=== PATIENT | female | born 1945 | race Asian ===

== ENCOUNTER 2018-03-18 12:28 | Emergency (ER) | payer MEDICAID, MEDICARE ==
[~2018-03-18] VITALS: Ht 160 cm; Wt 80.0 kg
[2018-03-18 13:26] LABS: BASOPHILS % 0.9 % (0.0-2.0); EOSINOPHILS % 0.5 % (0.0-5.0); HEMATOCRIT. 41.6 % (36.0-48.0); HEMOGLOBIN. 14.1 g/dL (12.0-16.0); LYMPHOCYTES % 14.1 % (20.0-50.0); MEAN CORPUSCULAR HEMOGLOBIN 32.2 pg (28.0-32.0); MEAN CORPUSCULAR VOLUME 95.4 fL (81.0-99.0); MEAN PLATELET VOLUME 7.8 fl (7.4-10.4); NEUTROPHILS % 77.5 % (40.0-76.0); PLATELET 277 x1000/uL (130-400); RED BLOOD CELL COUNT 4.36 mill/uL (4.2-5.4); RED CELL DISTRIBUTION WIDTH 13.1 % (11.6-14.6)
[2018-03-18] MEDS ORDERED: VISCOUS LIDOCAINE 2% 15 ML UDC PO STA (13:30)
[2018-03-18] MEDS ORDERED: MAGNESIUM/ALUMINUM HYDROXIDE/SIMETHICONE 30ML UDC PO STA (13:30)
[2018-03-18] MEDS ORDERED: SODIUM CHLORIDE 0.9% 1,000 ML IV ONE (13:30)
[2018-03-18 13:31] LABS: CHLORIDE 100 mEq/L (98-107)
[2018-03-18 13:37] LABS: INR 0.9; PROTHROMBIN TIME 9.2 sec (9.1-11.1)
[2018-03-18 13:44] LABS: CLARITY URINE CLEAR (CLEAR); COLOR URINE YELLOW (YELLOW); KETONES URINE NEGATIVE (NEGATIVE); LEUKOCYTE ESTERASE URINE TRACE (NEGATIVE); NITRITE URINE NEGATIVE (NEGATIVE); OCCULT BLOOD URINE NEGATIVE (NEGATIVE); PH URINE 7.5 (4.5-8.0); PROTEIN URINE NEGATIVE (NEGATIVE); SPECIFIC GRAVITY URINE 1.006 (1.005-1.030); UROBILINOGEN URINE 0.2 E.U./dL (0.2-1.0)
[2018-03-18] MEDS ORDERED: POTASSIUM CHLORIDE 20MEQ TABLET SR PO ONE (14:15)
[2018-03-18 15:55] VITALS: BP 122/78
== END 2018-03-18 16:16 | disposition home or self-care (01) ==
LOC: ER 12:28
DX: K29.70 Gastritis, unspecified, without bleeding (principal); E86.0 Dehydration; E87.6 Hypokalemia; I10 Essential (primary) hypertension; Z88.0 Allergy status to penicillin
CPT/HCPCS: 36415; 76705; 80053; 81003; 83690; 85025; 85610; 96360; 96361; 99284; J7030

== ENCOUNTER 2018-04-05 12:21 | Emergency (ER) | payer MEDICAID, MEDICARE ==
[~2018-04-05] VITALS: Ht 152.4 cm; Wt 60.0 kg
[2018-04-05] MEDS ORDERED: ACETAMINOPHEN 325MG TABLET PO ONE (14:30)
[2018-04-05 15:17] LABS: BASOPHILS % 1.5 % (0.0-2.0); EOSINOPHILS % 0.7 % (0.0-5.0); HEMATOCRIT. 38.4 % (36.0-48.0); LYMPHOCYTES % 22.8 % (20.0-50.0); MEAN CORPUSCULAR HEMOGLOBIN 32.2 pg (28.0-32.0); MEAN CORPUSCULAR VOLUME 95.3 fL (81.0-99.0); MEAN PLATELET VOLUME 7.6 fl (7.4-10.4); PLATELET 349 x1000/uL (130-400); RED BLOOD CELL COUNT 4.03 mill/uL (4.2-5.4); RED CELL DISTRIBUTION WIDTH 13.2 % (11.6-14.6)
[2018-04-05 15:25] LABS: INR 0.9; PARTIAL THROMBOPLASTIN TIME 23.8 sec (23.4-31.0); PROTHROMBIN TIME 9.4 sec (9.1-11.1)
[2018-04-05 15:30] LABS: CHLORIDE 105 mEq/L (98-107)
[2018-04-05] MEDS ORDERED: POTASSIUM CHLORIDE 20MEQ TABLET SR PO ONE (15:45)
[2018-04-05 17:06] LABS: CLARITY URINE CLEAR (CLEAR); COLOR URINE YELLOW (YELLOW); KETONES URINE NEGATIVE (NEGATIVE); LEUKOCYTE ESTERASE URINE NEGATIVE (NEGATIVE); NITRITE URINE NEGATIVE (NEGATIVE); OCCULT BLOOD URINE NEGATIVE (NEGATIVE); PH URINE 7.5 (4.5-8.0); PROTEIN URINE NEGATIVE (NEGATIVE); SPECIFIC GRAVITY URINE 1.004 (1.005-1.030); UROBILINOGEN URINE 0.2 E.U./dL (0.2-1.0)
[2018-04-05 18:00] VITALS: BP 121/68
== END 2018-04-05 18:06 | disposition home or self-care (01) ==
LOC: ER 12:21
DX: M71.21 Synovial cyst of popliteal space [Baker], right knee (principal); M17.11 Unilateral primary osteoarthritis, right knee
CPT/HCPCS: 36415; 73560; 93970; 99284

== ENCOUNTER 2018-05-17 15:19 | Inpatient (IN) | payer MEDICARE ==
[~2018-05-17] VITALS: Ht 160 cm; Wt 61.7 kg
[2018-05-17] MEDS ORDERED: ONDANSETRON HCL 4MG/2ML INJ IV STA (18:33)
[2018-05-17] MEDS ORDERED: SODIUM CHLORIDE 0.9% 1,000 ML IV ONE (18:33)
[2018-05-17] MEDS ORDERED: MORPHINE SULFATE 4 MG/ML CPJ (NOT FOR IM USE) IV STA (18:33)
[2018-05-17] MEDS ORDERED: PANTOPRAZOLE SODIUM 40 MG/VIAL IV STA (18:33)
[2018-05-17 19:01] LABS: BASOPHILS % 0.8 % (0.0-2.0); EOSINOPHILS % 0.6 % (0.0-5.0); HEMATOCRIT. 26.8 % (36.0-48.0); LYMPHOCYTES % 18.8 % (20.0-50.0); MEAN CORPUSCULAR HEMOGLOBIN 32.6 pg (28.0-32.0); MEAN CORPUSCULAR VOLUME 96.9 fL (81.0-99.0); MEAN PLATELET VOLUME 7.9 fl (7.4-10.4); MONOCYTES % 7.4 % (2.0-8.0); NEUTROPHILS % 72.4 % (40.0-76.0); PLATELET 316 x1000/uL (130-400); RED BLOOD CELL COUNT 2.76 mill/uL (4.2-5.4); RED CELL DISTRIBUTION WIDTH 13.8 % (11.6-14.6)
[2018-05-17 19:06] LABS: CHLORIDE 105 mEq/L (98-107)
[2018-05-17 19:21] LABS: PARTIAL THROMBOPLASTIN TIME 20.3 sec (23.4-31.0); PROTHROMBIN TIME 9.8 sec (9.1-11.1)
[2018-05-17] MEDS ORDERED: PANTOPRAZOLE 80 MG in SODIUM CHLORIDE 0.9% 100 ML IV STA (19:30)
[2018-05-17] MEDS ORDERED: KCL 10MEQ/50ML PREMIX 50 ML IV ONE (19:30)
[2018-05-17 20:31] LABS: CLARITY URINE CLEAR (CLEAR); COLOR URINE YELLOW (YELLOW); KETONES URINE NEGATIVE (NEGATIVE); LEUKOCYTE ESTERASE URINE NEGATIVE (NEGATIVE); NITRITE URINE NEGATIVE (NEGATIVE); OCCULT BLOOD URINE NEGATIVE (NEGATIVE); PROTEIN URINE NEGATIVE (NEGATIVE); SPECIFIC GRAVITY URINE 1.017 (1.005-1.030); UROBILINOGEN URINE 0.2 E.U./dL (0.2-1.0)
[2018-05-17 23:00] VITALS: BP 106/52
[2018-05-18] VITALS (10 sets, daily range): BP systolic 98–135; BP diastolic 50–78
[2018-05-18] MEDS ORDERED: NAPR375T5 PO (00:47)
[2018-05-18] MEDS ORDERED: OMEP20TA2 PO (00:47)
[2018-05-18] MEDS ORDERED: AMLO-79 PO (00:47)
[2018-05-18] MEDS ORDERED: MORPHINE SULFATE 4 MG/ML CPJ (NOT FOR IM USE) IV PRN (01:30)
[2018-05-18] MEDS: DEXT 5%/0.45% NACL KCL 20MEQ/L 1,000 ML IV SCH ×2 (02:35→15:35)
[2018-05-18 06:21] LABS: HEMATOCRIT 22.4 % (36.0-48.0); HEMOGLOBIN 7.5 g/dL (12.0-16.0); MEAN CORPUSCULAR HEMOGLOBIN 32.6 pg (28.0-32.0); MEAN CORPUSCULAR VOLUME 96.8 fL (81.0-99.0); PLATELET 266 x1000/uL (130-400); RED BLOOD CELL COUNT 2.31 mill/uL (4.2-5.4); RED CELL DISTRIBUTION WIDTH 13.6 % (11.6-14.6)
[2018-05-18 06:39] LABS: CHLORIDE 111 mEq/L (98-107)
[2018-05-18] MEDS: PANTOPRAZOLE SODIUM 40 MG/VIAL IV SCH ×2 (08:53→18:29)
[2018-05-18] MEDS ORDERED: POTASSIUM CHLORIDE INJ 40 MEQ in DEXT 5% WATER 250 ML IV NR (12:00)
[2018-05-18] MEDS ORDERED: ONDANSETRON HCL 4MG/2ML INJ IV PRN (13:15)
[2018-05-18 13:42] LABS: HEMATOCRIT 25.1 % (36.0-48.0); HEMOGLOBIN 8.7 g/dL (12.0-16.0)
[2018-05-18] MEDS ORDERED: BACTERIOSTATIC SODIUM CHLORIDE 0.9% 30ML VIAL IJ ONE (15:03)
[2018-05-18] MEDS ORDERED: SIMETHICONE 40 MG/0.6 ML 30ML ONE ×2 (15:03→16:36)
[2018-05-18] MEDS ORDERED: MIDAZOLAM HCL 5 MG/5 ML VIAL ONE (16:36)
[2018-05-18] MEDS ORDERED: MIDAZOLAM HCL 5 MG/5 ML VIAL IV PRN (16:36)
[2018-05-18] MEDS ORDERED: FENTANYL CITRATE/PF 50MCG/ML 2ML VIAL ONE (16:37)
[2018-05-18] MEDS ORDERED: FENTANYL CITRATE/PF 50MCG/ML 2ML VIAL IV PRN (16:37)
[2018-05-19] VITALS (7 sets, daily range): BP systolic 102–140; BP diastolic 54–69
[2018-05-19 01:05] LABS: HEMATOCRIT 36.2 % (36.0-48.0); HEMOGLOBIN 12.6 g/dL (12.0-16.0)
[2018-05-19] MEDS: DEXT 5%/0.45% NACL KCL 20MEQ/L 1,000 ML IV SCH ×2 (05:55→16:40)
[2018-05-19 07:02] LABS: HEMATOCRIT 27.5 % (36.0-48.0); HEMOGLOBIN 9.4 g/dL (12.0-16.0); MEAN CORPUSCULAR HEMOGLOBIN 32.5 pg (28.0-32.0); MEAN CORPUSCULAR VOLUME 95.1 fL (81.0-99.0); PLATELET 275 x1000/uL (130-400); RED BLOOD CELL COUNT 2.89 mill/uL (4.2-5.4); RED CELL DISTRIBUTION WIDTH 13.9 % (11.6-14.6)
[2018-05-19 07:09] LABS: CHLORIDE 110 mEq/L (98-107)
[2018-05-19] MEDS: PANTOPRAZOLE SODIUM 40 MG/VIAL IV SCH ×2 (08:24→16:40)
[2018-05-19] MEDS ORDERED: POTASSIUM CHLORIDE INJ 40 MEQ in DEXT 5% WATER 250 ML IV NR (13:00)
[2018-05-19] MEDS ORDERED: HYDROCODONE/ACETAMINOPHEN 5/325MG TABLET PO PRN (15:30)
[2018-05-19] MEDS ORDERED: CLONIDINE 0.1MG TABLET PO PRN (15:30)
[2018-05-19] MEDS ORDERED: ACETAMINOPHEN 325MG TABLET PO PRN (15:30)
[2018-05-19] MEDS ORDERED: ACETAMINOPHEN 650MG SUPP PR PRN (15:30)
[2018-05-19 15:46] LABS: HEMATOCRIT 27.7 % (36.0-48.0); HEMOGLOBIN 9.6 g/dL (12.0-16.0)
[2018-05-19] MEDS ORDERED: POTASSIUM CHLORIDE INJ 40 MEQ in DEXT 5% WATER 250 ML IV SCH (20:00)
[2018-05-20 00:04] VITALS: BP 129/53
[2018-05-20 01:01] LABS: HEMATOCRIT 27.3 % (36.0-48.0); HEMOGLOBIN 9.4 g/dL (12.0-16.0)
[2018-05-20] MEDS: DEXT 5%/0.45% NACL KCL 20MEQ/L 1,000 ML IV SCH (03:19)
[2018-05-20 04:58] VITALS: BP 110/55
[2018-05-20 06:34] LABS: HEMATOCRIT 28.8 % (36.0-48.0); HEMOGLOBIN 9.9 g/dL (12.0-16.0); MEAN CORPUSCULAR VOLUME 95.7 fL (81.0-99.0); PLATELET 304 x1000/uL (130-400); RED BLOOD CELL COUNT 3.01 mill/uL (4.2-5.4); RED CELL DISTRIBUTION WIDTH 14.1 % (11.6-14.6)
[2018-05-20 06:43] LABS: CHLORIDE 110 mEq/L (98-107)
[2018-05-20 06:52] LABS: TOTAL IRON BINDING CAPACITY 323 ug/dL (250-450)
[2018-05-20] MEDS: PANTOPRAZOLE SODIUM 40 MG/VIAL IV SCH ×2 (08:31→17:14)
[2018-05-20 12:14] VITALS: BP 115/52
[2018-05-20 15:50] VITALS: BP 126/62
[2018-05-20] MEDS ORDERED: SUCRALFATE 1G TABLET PO SCH (17:20)
[2018-05-20] MEDS ORDERED: FERROUS SULFATE 325MG TABLET PO SCH (17:50)
== END 2018-05-20 19:03 | disposition home or self-care (01) | DRG 378 ==
LOC: ER 15:19 → 6WST 20:33 → ENRESERV 21:21
PROVIDERS: ADMIT Internal Medicine; ATTEND Internal Medicine
PROC: 30233N1 Transfusion of Nonautologous Red Blood Cells into Peripheral Vein, Percutaneous Approach (ICD-10-PCS; principal; 2018-05-18)
PROC: 0DB68ZX Excision of Stomach, Via Natural or Artificial Opening Endoscopic, Diagnostic (ICD-10-PCS; 2018-05-18)
PROC: 0W3P8ZZ Control Bleeding in Gastrointestinal Tract, Via Natural or Artificial Opening Endoscopic (ICD-10-PCS; 2018-05-18)
DX: K25.4 Chronic or unspecified gastric ulcer with hemorrhage (principal); D62 Acute posthemorrhagic anemia; E61.1 Iron deficiency; E78.5 Hyperlipidemia, unspecified; E86.0 Dehydration; E87.6 Hypokalemia; K26.4 Chronic or unspecified duodenal ulcer with hemorrhage; I10 Essential (primary) hypertension; K21.9 Gastro-esophageal reflux disease without esophagitis; K29.60 Other gastritis without bleeding; R91.1 Solitary pulmonary nodule; K44.9 Diaphragmatic hernia without obstruction or gangrene; K57.30 Diverticulosis of large intestine without perforation or abscess without bleeding; K76.89 Other specified diseases of liver; M48.061 Spinal stenosis, lumbar region without neurogenic claudication; N20.0 Calculus of kidney; Z90.49 Acquired absence of other specified parts of digestive tract; Z88.0 Allergy status to penicillin
CPT/HCPCS: 36415; 71045; 74176; 76700; 80048; 82728; 83036; 83540; 83550; 84132; 84439; 84443; 84484; 85014; 85018; 85027; 86850; 86900; 86920; 88305; 88313; 93005; 96374; 96375; 99285; C9113; J2250; J2270; J2405; J3010; J3480; J3490; J7030; J7050; J7060; P9016

== ENCOUNTER 2018-05-23 07:52 | Emergency (ER) | payer MEDICARE ==
[~2018-05-23] VITALS: Ht 160 cm; Wt 71.0 kg
[~2018-05-23 07:52] MED LIST: AMLO-79 PO
[2018-05-23 12:11] VITALS: BP 138/81
== END 2018-05-23 12:43 | disposition left against medical advice (07) ==
LOC: ER 07:52
DX: Z53.21 Procedure and treatment not carried out due to patient leaving prior to being seen by health care provider (principal)

== ENCOUNTER 2021-07-19 00:25 | Emergency (ER) | payer MEDICARE ==
[~2021-07-19] VITALS: Ht 160 cm; Wt 64.0 kg
[~2021-07-19 00:25] MED LIST changes: +AMLO-504 MT; -AMLO-79 PO; +MONT10TA32 MT; +MULT-1146 MT; +OMEP20TA2 MT
[2021-07-19] MEDS ORDERED: KETOROLAC 30MG/ML VIAL IV STA (02:42)
[2021-07-19 03:14] LABS: BASOPHILS % 0.3 % (0.0-2.0); HEMATOCRIT. 39.3 % (36.0-48.0); HEMOGLOBIN. 13.6 g/dL (12.0-16.0); LYMPHOCYTES % 17.7 % (20.0-50.0); MEAN CORPUSCULAR HEMOGLOBIN 32.3 pg (28.0-32.0); MEAN CORPUSCULAR VOLUME 93.1 fL (81.0-99.0); MEAN PLATELET VOLUME 7.7 fl (7.4-10.4); MONOCYTES % 5.1 % (2.0-8.0); NEUTROPHILS % 76.9 % (40.0-76.0); PLATELET 450 x1000/uL (130-400); RED BLOOD CELL COUNT 4.22 mill/uL (4.2-5.4); RED CELL DISTRIBUTION WIDTH 13.4 % (11.6-14.6)
[2021-07-19 03:20] LABS: CHLORIDE 102 mEq/L (98-107)
[2021-07-19 04:19] LABS: CLARITY URINE CLEAR (CLEAR); COLOR URINE YELLOW (YELLOW); KETONES URINE NEGATIVE (NEGATIVE); LEUKOCYTE ESTERASE URINE TRACE (NEGATIVE); NITRITE URINE POSITIVE (NEGATIVE); OCCULT BLOOD URINE NEGATIVE (NEGATIVE); PH URINE 7.5 (4.5-8.0); PROTEIN URINE NEGATIVE (NEGATIVE); SPECIFIC GRAVITY URINE 1.013 (1.005-1.030); UROBILINOGEN URINE 0.2 E.U./dL (0.2-1.0)
[2021-07-19 04:30] VITALS: BP 134/82
[2021-07-19] MEDS ORDERED: IBUP-2028 MT (04:34)
== END 2021-07-19 05:05 | disposition home or self-care (01) ==
LOC: ER 00:25
DX: M54.42 Lumbago with sciatica, left side (principal); I10 Essential (primary) hypertension
CPT/HCPCS: 36415; 73502; 80053; 81003; 85025; 93971; 96374; 99284; J1885

== ENCOUNTER 2025-01-20 11:23 | Emergency (ER) | payer BC, MEDICARE ==
[~2025-01-20] VITALS: Ht 162.6 cm; Wt 60.0 kg
[~2025-01-20 11:23] MED LIST changes: +AMLO-371 PO; -AMLO-504 MT; +EMPA10TA PO; +MAGN200T5 PO; -MONT10TA32 MT; -MULT-1146 MT; -OMEP20TA2 MT; +PROT40 MT; +ROSU5TAB PO; +SUCR1TAB PO; +TRAM50TA3 PO
[2025-01-20 11:37] VITALS: O2SAT 99
[2025-01-20] MEDS ORDERED: ACET-2708 MT (15:19)
[2025-01-20 15:36] VITALS: BP 120/70; PULSE 60; RESP 14; TEMP 36.9; O2SAT 99
== END 2025-01-20 15:37 | disposition home or self-care (01) ==
LOC: ER 11:23
DX: R51.9 Headache, unspecified (principal); E11.9 Type 2 diabetes mellitus without complications; E78.00 Pure hypercholesterolemia, unspecified; I11.9 Hypertensive heart disease without heart failure; K21.9 Gastro-esophageal reflux disease without esophagitis; Z88.0 Allergy status to penicillin; Z79.84 Long term (current) use of oral hypoglycemic drugs; Z90.49 Acquired absence of other specified parts of digestive tract; Z79.899 Other long term (current) drug therapy
CPT/HCPCS: 99284